=== PATIENT | male | born 1945 | race Caucasian/White ===

== ENCOUNTER 2018-12-15 17:41 | Inpatient (IN) ==
[2018-12-15] MEDS ORDERED: NORMAL SALINE 1,000 ML IV ONE ×2 (17:49→19:04)
[2018-12-15] MEDS ORDERED: ONDANSETRON HCL/PF 2 MG/ML VIAL IV ONE (17:49)
[2018-12-15] MEDS ORDERED: ONDANSETRON HCL/PF 2 MG/ML VIAL ONE (17:51)
[2018-12-15 18:03] LABS: Urine Bilirubin 1 mg/dl (NEGATIVE); Urine Blood Negative /ul (NEGATIVE); Urine Ketone 5 mg/dL (NEGATIVE); Urine Nitrite Negative (NEGATIVE); Urine Protein Negative (NEGATIVE); Urine Specific Gravity 1.025 SP.GR. (1.005-1.030); Urine pH 5.5 pH (5.0-7.0)
--- NOTE | 2018-12-15 18:04 | ERNOTE ---
<Curtis Coburn - Last Filed: 12/15/18 19:36> Abdominal HPI - Narrative Date of Service: 12/15/18 - General Chief Complaint: Abdominal Pain Time Seen by Provider: 12/15/18 17:46 Source: patient, EMS notes reviewed Exam Limitations: clinical condition - Immun/Allergies/Home Medications Immunizatons: IMMUNIZATION HX Immunizations Up to Date Yes History of Influenza Vaccine Yes Hx Pneumococcal Vaccination Yes Allergies/Adverse Reactions: Allergies sulfamethoxazole [From Bactrim] Allergy (Verified 12/15/18 18:23) trimethoprim [From Bactrim] Allergy (Verified 12/15/18 18:23) Home Medications: HOME MEDICATIONS Amlodipine Besylate 2.5 mg PO DAILY 12/15/18 [Last Taken Unknown] Aspirin [Aspirin EC] 325 mg PO DAILY 12/15/18 [Last Taken Unknown] Clopidogrel Bisulfate [Plavix] 75 mg PO DAILY 12/15/18 [Last Taken Unknown] Ezetimibe 10 mg PO DAILY 12/15/18 [Last Taken Unknown] Finasteride [Propecia] 1 mg PO DAILY 12/15/18 [Last Taken Unknown] Insulin NPH Hum/Reg Insulin Hm [Humulin 70-30] 20 unit SC QPM 12/15/18 [Last Taken Unknown] Insulin NPH Hum/Reg Insulin Hm [Humulin 70-30] 40 unit SC QAM 12/15/18 [Last Taken Unknown] Lisinopril [Zestril] 20 mg PO DAILY 12/15/18 [Last Taken Unknown] Metoprolol Tartrate 25 mg PO BID 12/15/18 [Last Taken Unknown] Saccharomyces Boulardii [Florastor] 250 mg PO BID 12/15/18 [Last Taken Unknown] Sertraline HCl [Zoloft] 50 mg PO DAILY 12/15/18 [Last Taken Unknown] Simvastatin [Zocor] 40 mg PO HS 12/15/18 [Last Taken Unknown] Tamsulosin HCl 0.4 mg PO DAILY 12/15/18 [Last Taken Unknown] - History of Present Illness Narrative: mily arrived to [facility] per ems with c/o lowbp anp vomiting, patient slow to speak but slightly confused Timing: constant Quality: moderate Activities at Onset: other - vomiting Modifying Factors - (Improves): Present: other - nothing Modifying Factors - (Worsens): Present: other Prior Abdominal Problems: Present: none Review of Systems - Review of Systems Constitutional: Present: See HPI EYE: Present: no symptoms reported ENT: Present: no symptoms reported Respiratory: Present: no symptoms reported Cardiology: Present: no symptoms reported Gastrointestinal/Abdominal: Present: See HPI, nausea, vomiting, eating less, drinking less Genitourinary: Present: no symptoms reported Musculoskeletal: Present: no symptoms reported Skin: Present: no symptoms reported Neurological: Present: no symptoms reported Endocrine: Present: no symptoms reported Hematologic/Lymphatic: Present: no symptoms reported Psych: Present: no symptoms reported All Other Systems: All systems neg except as marked Medical History (Updated 12/15/18 @ 18:20 by Armida Kilgore RN) Atherosclerotic heart disease BPH (benign prostatic hyperplasia) Coronary artery occlusion Diabetes type 2, controlled Elevated PSA Essential hypertension Hx of diabetic foot ulcer Hyperlipidemia Major depressive disorder Muscle wasting Onychogryphosis Restless leg syndrome CVA (cerebral vascular accident) Surgical History: Surgical History (Updated 12/15/18 @ 18:22 by Armida Kilgore RN) Surgical history unknown Family History: Family History (Updated 12/15/18 @ 18:21 by Armida Kilgore RN) Other Surgical history unknown Unknown family medical history Social History: (Last Updated 12/11/18 @ 14:14 by Audra Grubbs LPN) Social History: custodial: Yes Tobacco: Smoking Status: Smoker, status unknown Physical Exam - Physical Exam General Appearance: Present: lethargic Head Exam: Present: normal inspection, no evidence of injury Eye Exam: Normal inspection: bilateral, PERRL: bilateral, EOMI: bilateral Ears, Nose, Throat: Present: dry mucous membranes Neck: Present: normal inspection, nontender Respiratory: Present: no respiratory distress, normal breath sounds, no accessory muscle use, chest nontender, lungs clear Cardiovascular/Chest: Present: no murmur, tachycardia Peripheral Pulses: N=norm/S=strong/W=weak/B=bound/A=absent: Carotid (R): Normal, Carotid (L): Normal, Radial (R): Normal, Radial (L): Normal, Femoral (R): Normal, Femoral (L): Normal, Dorsalis-pedis (R): Normal, Dorsalis-pedis (L): Normal Gastrointestinal/Abdominal: Present: tenderness, abnormal bowel sounds, distended Back Exam: Present: normal inspection, normal range of motion, no vertebral tenderness Extremity Exam: Present: normal inspection, other - left sided paraplegias from previuos cva Neurological Exam: Present: alert, disoriented to person, disoriented to time, disoriented to place, disoriented to situation Skin Exam: Present: normal color, warm/dry Lymphatic Exam: Present: no adenopathy Progress - Date and Time Seen: Date and Time: 12/15/18 19:36 patient improved somewhat to obtain ct of abdomen if possble - Results and Orders Patient's Lab Results:: I have reviewed the patient's lab results. - Vital Signs Patient's Vital Signs:: I have reviewed the patient's vital signs. Vital Signs: Vital Signs 12/15/18 17:45 Temperature 35.8 C L Pulse Rate 115 H Respiratory Rate 19 Blood Pressure 104/59 O2 Sat by Pulse Oximetry 95 - EKG EKG #1 EKG: supraventricular tachycardia EKG read: Interp. by ut - sinus tachycardia - X-Ray X-Ray #1 X-Ray: abdomen Interpretation: Interp. by me - lateral decubitus reveals air fluid levels - Progress/Reassessment Chief Complaint: Abdominal Pain Progress:: Unchanged - Transfer of Care Physician Sign Out: Curtis Coburn Receiving Physician: Leonard Mendoza Expected Disposition: Admit Plan - Plan Plan: to be admitted Departure Clinical Impression: Colitis Sepsis Qualifiers: Sepsis type: sepsis due to unspecified organism Qualified Code(s): A41.9 - Sepsis, unspecified organism - Departure Disposition: Still a patient Condition: Serious <Leonard Mendoza - Last Filed: 12/16/18 02:03> Abdominal HPI - Immun/Allergies/Home Medications Immunizatons: IMMUNIZATION HX Immunizations Up to Date Yes History of Influenza Vaccine Yes Hx Pneumococcal Vaccination Yes Medical History (Updated 12/16/18 @ 00:58 by Leonard Mendoza DO) Atherosclerotic heart disease BPH (benign prostatic hyperplasia) Coronary artery occlusion Diabetes type 2, controlled Elevated PSA Essential hypertension Hx of diabetic foot ulcer Hyperlipidemia Major depressive disorder Muscle wasting Onychogryphosis Restless leg syndrome CVA (cerebral vascular accident) Surgical History: Surgical History (Updated 12/15/18 @ 18:22 by Armida Kilgore RN) Surgical history unknown Family History: Family History (Updated 12/15/18 @ 18:21 by Armida Kilgore RN) Other Surgical history unknown Unknown family medical history Social History: (Last Updated 12/11/18 @ 14:14 by Audra Grubbs LPN) Social History: custodial: Yes Tobacco: Smoking Status: Smoker, status unknown Physical Exam - Physical Exam General Appearance: Present: wd/wn, alert Head Exam: Present: normal inspection, no evidence of injury Respiratory: Present: no respiratory distress, no accessory muscle use Gastrointestinal/Abdominal: Present: tenderness - mild diffuse, abnormal bowel sounds - hyperactive Neurological Exam: Present: alert, disoriented to place - improving from presentation Skin Exam: Present: normal color, warm/dry Progress - Results and Orders Patient's Lab Results:: I have reviewed the patient's lab results. - Vital Signs Patient's Vital Signs:: I have reviewed the patient's vital signs. Vital Signs: Vital Signs 12/15/18 17:45 12/15/18 18:19 12/15/18 18:30 Temperature 35.8 C L Pulse Rate 115 H 105 H 113 H Respiratory Rate 19 28 H 22 H Blood Pressure 104/59 108/56 90/22 O2 Sat by Pulse Oximetry 95 96 97 12/15/18 19:00 12/15/18 19:30 12/15/18 20:00 Temperature Pulse Rate 112 H 115 H 112 H Respiratory Rate 21 H 22 H 24 H Blood Pressure 95/47 103/54 98/52 O2 Sat by Pulse Oximetry 96 97 98 12/15/18 20:30 12/15/18 21:00 12/15/18 21:30 Temperature 36.5 C Pulse Rate 113 H 113 H 113 H Respiratory Rate 28 H 28 H 25 H Blood Pressure 92/44 98/51 118/57 O2 Sat by Pulse Oximetry 95 98 96 12/15/18 22:00 12/15/18 22:30 12/15/18 23:00 Temperature Pulse Rate 113 H 115 H 114 H Respiratory Rate 24 H 25 H 22 H Blood Pressure 141/71 105/56 146/76 O2 Sat by Pulse Oximetry 95 98 95 12/15/18 23:30 Temperature Pulse Rate 115 H Respiratory Rate 22 H Blood Pressure 144/72 O2 Sat by Pulse Oximetry 94 - CT/Ultrasound CT/Ultrasound Narrative: CT abdomen pelvis with oral and IV contrast Moderate colonic wall thickening involving the splenic flexure and descending colon represents colitis versus inflammatory bowel. No pneumoperitoneum, abscess or bowel obstruction. Normal appendix - Progress/Reassessment Progress Note-Subjective: 12/16/18 00:[address] Blackburn she agreed with observation admission and recommended Flagyl.
[2018-12-15 18:14] LABS: Urine Appearance Clear (CLEAR); Urine Color Amber
[2018-12-15 18:15] LABS: Urine Bacteria TRACE; Urine RBC 0-5 /hpf (0-5); Urine WBC None Seen /hpf (0-5)
[2018-12-15 18:35] LABS: Hematocrit 48.8 % (42.0-52.0); Hemoglobin 16.5 gm/dL (13.5-18.0); Mean Cell Volume 86.2 fl (78-100); Mean Corpuscular Hemoglobin 29.2 pg (27-31); Mean Corpuscular Hgb Conc 33.8 g/dl (32-36); Mean Platelet Volume 9.5 fl (8-11.3); Platelet Count 293 K/mm3 (150-450); Red Blood Count 5.66 M/mm3 (4.7-6.0); Red Cell Distribution Width 13.7 % (11.5-14.0); White Blood Count 29.1 K/mm3 (4.0-10.5)
[2018-12-15 18:39] LABS: Total Cells Counted 100
[2018-12-15 18:40] LABS: Albumin * 3.5 gm/dl (3.4-5.0); Anion Gap 17.1 mmol/L (6.8-13.8); BUN/Creatinine Ratio 16.9 (9.0-21.6); Bilirubin, Total 0.9 mg/dL (0.0-1.1); CRP 1.4 mg/dL (0.0-0.9); Calcium * 9.9 mg/dL (7.9-10.9); Carbon Dioxide 26.1 mmol/L (24-32.6); Potassium 4.2 mmol/L (3.4-4.6)
[2018-12-15 18:51] LABS: Lymphocyte 12 % (20-51); Monocyte 2 % (0-9); Neutrophil 86 % (42-75)
[2018-12-15 18:52] LABS: Ovalocytes 1+
[2018-12-15 18:53] LABS: Platelet Estimate Normal (NORMAL)
[2018-12-15] MEDS ORDERED: PROCHLORPERAZINE EDISYLATE 5 MG/ML VIAL IV ONE (18:56)
[2018-12-15] MEDS ORDERED: DIATRIZOATE MEGLUMINE, SODIUM 30 ML BTL PO ONE ×2 (19:30→19:32)
[2018-12-15] MEDS ORDERED: PIPERACILLIN SODIUM/TAZOBACTAM 3.375 GM in DEXTROSE 5 % IN WATER 100 ML IV ONE ×2 (20:28)
[2018-12-15] MEDS: NORMAL SALINE 1,000 ML IV PRN (20:30)
[2018-12-16] MEDS: metroNIDAZOLE/SODIUM CHLORIDE 500 MG/100 ML BAG IV SCH ×3 (02:36→16:29)
[2018-12-16] MEDS: NORMAL SALINE 1,000 ML IV PRN ×2 (06:06→16:30)
[2018-12-16] MEDS ORDERED: ACETAMINOPHEN 325 MG TABLET PO PRN (10:23)
[2018-12-16] MEDS ORDERED: ONDANSETRON HCL/PF 2 MG/ML VIAL IV PRN (10:24)
[2018-12-16] MEDS ORDERED: FINASTERIDE 1 MG PO SCH (10:30)
[2018-12-16] MEDS: ASPIRIN 325 MG TABLET.DR PO SCH (11:07)
[2018-12-16] MEDS: CIPROFLOXACIN IN 5 % DEXTROSE 400 MG/200 ML BAG IV SCH (11:07)
[2018-12-16] MEDS: amLODIPine BESYLATE 5 MG TABLET PO SCH (11:08)
[2018-12-16] MEDS: METOPROLOL TARTRATE 50 MG TABLET PO SCH ×2 (11:08→20:22)
[2018-12-16] MEDS: SERTRALINE HCL 50 MG TABLET PO SCH (11:09)
[2018-12-16] MEDS: EZETIMIBE 10 MG TABLET PO SCH (11:09)
[2018-12-16] MEDS: CLOPIDOGREL BISULFATE 75 MG TABLET PO SCH (11:09)
[2018-12-16] MEDS: LISINOPRIL 20 MG TABLET PO SCH (11:09)
[2018-12-16] MEDS: SACCHAROMYCES BOULARDII 250 MG CAPSULE PO SCH ×2 (11:09→20:21)
--- NOTE | 2018-12-16 11:11 | HP ---
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 intermediate staff had patient brought to the hospital when he complained of increasing pain and became hypotensive patient was also found to have an elevated heart rate. During rounds this morning patient was found to be unaccompanied and was determined to be a poor historian due to his inability to give an accurate account of his symptoms, but he was able to communicate that he started having abdominal pain around the time that he was brought to the ER. Patient also became nauseous and said that he felt sick during bedside evaluation, antiemetics were administered and patient was provided with a vomit bag. Medical History (Updated 12/16/18 @ 00:58 by Leonard Mendoza DO) Atherosclerotic heart disease BPH (benign prostatic hyperplasia) Coronary artery occlusion Diabetes type 2, controlled Elevated PSA Essential hypertension Hx of diabetic foot ulcer Hyperlipidemia Major depressive disorder Muscle wasting Onychogryphosis Restless leg syndrome CVA (cerebral vascular accident) Surgical History: Surgical History (Updated 12/15/18 @ 18:22 by Armida Kilgore RN) Surgical history unknown Family History: Family History (Updated 12/15/18 @ 18:21 by Armida Kilgore RN) Other Surgical history unknown Unknown family medical history Social History: (Last Updated 12/11/18 @ 14:14 by Audra Grubbs LPN) Social History: halfway: Yes Tobacco: Smoking Status: Smoker, status unknown Peds Patient Hx - Developmental: No Pertinent Hx Peds Patient Hx - Medical: No Pertinent Hx Peds Patient Hx - Cardiac/Respiratory: No Pertinent Hx Peds Patient Hx - Surgical: No Surgical History Patient History - Cancer: No Hx of Cancer Review Of Systems (GEN) - Review of Systems Generalized/Overall Review: Present: No Symptoms Reported EENTM: Present: No Symptoms Reported Respiratory: Present: No Symptoms Reported Cardiac: Present: No Symptoms Reported Abdominal: Present: Nausea, Vomiting, Abdominal Pain Genitourinary: Present: No Symptoms Reported Musculoskeletal: Present: No Symptoms Reported Neurological: Present: No Symptoms Reported Skin: Present: No Symptoms Reported Endocrine: Present: No Symptoms Reported Immunizations: IMMUNIZATION HX Immunizations Up to Date Yes History of Influenza Vaccine Yes Hx Pneumococcal Vaccination Yes Allergies/Adverse Reactions: Allergies Allergy/AdvReac Type Severity Reaction Status Date / Time sulfamethoxazole Allergy Verified 12/15/18 18:23 [From Bactrim] trimethoprim [From Bactrim] Allergy Verified 12/15/18 18:23 Home Medications: HOME MEDICATIONS Amlodipine Besylate 2.5 mg PO DAILY 12/15/18 [Last Taken 12/14/18] Aspirin [Aspirin EC] 325 mg PO DAILY 12/15/18 [Last Taken 12/14/18] Clopidogrel Bisulfate [Plavix] 75 mg PO DAILY 12/15/18 [Last Taken 12/14/18] Ezetimibe 10 mg PO DAILY 12/15/18 [Last Taken 12/14/18] Finasteride [Propecia] 1 mg PO DAILY 12/15/18 [Last Taken 12/14/18] Insulin NPH Hum/Reg Insulin Hm [Humulin 70-30] 20 unit SC QPM 12/15/18 [Last Taken 12/14/18] Insulin NPH Hum/Reg Insulin Hm [Humulin 70-30] 40 unit SC QAM 12/15/18 [Last Taken 12/14/18] Lisinopril [Zestril] 20 mg PO DAILY 12/15/18 [Last Taken 12/14/18] Metoprolol Tartrate 25 mg PO BID 12/15/18 [Last Taken 12/14/18] Saccharomyces Boulardii [Florastor] 250 mg PO BID 12/15/18 [Last Taken 12/14/18] Sertraline HCl [Zoloft] 50 mg PO DAILY 12/15/18 [Last Taken 12/14/18] Simvastatin [Zocor] 40 mg PO HS 12/15/18 [Last Taken 12/14/18] Tamsulosin HCl 0.4 mg PO DAILY 12/15/18 [Last Taken 12/14/18] Exam - Exam Vital Signs: Vital Signs - Last Taken Temp 37.2 C 12/16/18 08:06 Pulse 129 H 12/16/18 08:06 Resp 14 12/16/18 08:06 BP 124/68 12/16/18 08:06 Pulse Ox 95 12/16/18 08:06 Constitutional: Present: Alert, Cooperative, Well developed, Well nourished, No distress, Elderly ENT Exam: Present: normal ENT inspection, hearing grossly normal, pharynx normal, TMs normal Eye Exam: bilateral eye: PERRL, EOMI, other - Patient is keeps his eyes shut so far evaluation was difficult to obtain Neck: Present: non-tender, full range of motion, supple, normal inspection, trachea midline Back Exam: Present: normal inspection, no CVA tenderness, no vertebral tenderness Breasts: Present: Exam deferred Respiratory: Present: chest non-tender, lungs clear, normal breath sounds, no respiratory distress, no accessory muscle use Cardiovascular/Chest: Present: normal peripheral pulses, no chest tenderness, no edema, no gallop, no JVD, no murmur, no rub Peripheral Pulses: carotid (R): 3+, carotid (L): 3+, femoral (R): 3+, femoral (L): 3+, dorsalis-pedis (R): 3+, dorsalis-pedis (L): 3+ Abdomen: Present: soft, no masses, obese, tender - Right upper quadrant, epigastric, left upper and lower quadrant tenderness on palpation, guarding, rebound tenderness, distended, hypoactive /Rectal: Present: Exam deferred Extremity: Present: non-tender, normal inspection, no pedal edema, no calf tenderness, normal capillary refill Skin Exam: Present: normal color, warm/dry, no cyanosis Lymphatic: Present: no adenopathy Neurologic: Present: alert, abnormal composition weatherboard applier II-XII, motor weakness, disoriented x 3, other - Left-sided hemiparesis Appearance: Present: appropriate appearance, neat, impaired insight, other - Patient speech is incoherent and does not make much sense Diagnostic Studies: Abnormal Lab Results 12/15/18 12/15/18 12/15/18 Range/Units 18:10 18:10 18:10 WBC 29.1 H (4.0-10.5) K/mm3 Neutrophils % (Manual) 86 H (42-75) % Lymphocytes % (Manual) 12 L (20-51) % Neutrophils # (Manual) 25.0 H (1.3-6.0) K/mm3 Anion Gap 17.1 H (6.8-13.8) mmol/L BUN 31 H D (6-23) mg/dL Creatinine 1.83 H D (0.4-1.4) mg/dL Est GFR (Non-Af Amer) 39 L D (60-130) mL/min Lactic Acid, Venous 4.0 H* (0.4-2.0) mmol/L AST 66 H (0-48) U/L C-Reactive Prot, Quant 1.4 H (0.0-0.9) mg/dL Lipase 54 L (73-393) U/L Urine Bilirubin (NEGATIVE) mg/dl Urine Urobilinogen (NORMAL) EU/dl 12/15/18 12/15/18 Range/Units 18:10 21:30 WBC (4.0-10.5) K/mm3 Neutrophils % (Manual) (42-75) % Lymphocytes % (Manual) (20-51) % Neutrophils # (Manual) (1.3-6.0) K/mm3 Anion Gap (6.8-13.8) mmol/L BUN (6-23) mg/dL Creatinine (0.4-1.4) mg/dL Est GFR (Non-Af Amer) (60-130) mL/min Lactic Acid, Venous 3.2 H* (0.4-2.0) mmol/L AST (0-48) U/L C-Reactive Prot, Quant (0.0-0.9) mg/dL Lipase (73-393) U/L Urine Bilirubin 1 H (NEGATIVE) mg/dl Urine Urobilinogen 2.0 H (NORMAL) EU/dl Microbiology 12/15/18 17:55 Urine Culture - Preliminary Urine,Catheterized No Growth Laboratory Results WBC 29.1 K/mm3 (4.0-10.5) H 12/15/18 18:10 RBC 5.66 M/mm3 (4.7-6.0) 12/15/18 18:10 Hgb 16.5 gm/dL (13.5-18.0) 12/15/18 18:10 Hct 48.8 % (42.0-52.0) 12/15/18 18:10 MCV 86.2 fl (78-100) 12/15/18 18:10 MCH 29.2 pg (27-31) 12/15/18 18:10 MCHC 33.8 g/dl (32-36) 12/15/18 18:10 RDW 13.7 % (11.5-14.0) 12/15/18 18:10 Plt Count 293 K/mm3 (150-450) 12/15/18 18:10 MPV 9.5 fl (8-11.3) 12/15/18 18:10 86 % (42-75) H 12/15/18 18:10 12 % (20-51) L 12/15/18 18:10 2 % (0-9) 12/15/18 18:10 25.0 K/mm3 (1.3-6.0) H 12/15/18 18:10 3.5 k/mm3 (1.5-3.5) 12/15/18 18:10 0.6 k/mm3 (0.0-1.0) 12/15/18 18:10 Normal (NORMAL) 12/15/18 18:10 1+ 12/15/18 18:10 2+ 12/15/18 18:10 Sodium 140 mmol/L (132-142) 12/15/18 18:10 140 mmol/L (130-142) 12/15/18 18:10 Potassium 4.2 mmol/L (3.4-4.6) 12/15/18 18:10 Chloride 101 mmol/L (97-106) 12/15/18 18:10 Carbon Dioxide 26.1 mmol/L (24-32.6) 12/15/18 18:10 17.1 mmol/L (6.8-13.8) H 12/15/18 18:10 BUN 31 mg/dL (6-23) H D 12/15/18 18:10 1.83 mg/dL (0.4-1.4) H D 12/15/18 18:10 Est GFR (Non-Af Amer) 39 mL/min (60-130) L D 12/15/18 18:10 16.9 (9.0-21.6) 12/15/18 18:10 110 mg/dL (70-110) 12/15/18 18:10 3.2 mmol/L (0.4-2.0) H* 12/15/18 21:30 Calcium 9.9 mg/dL (7.9-10.9) 12/15/18 18:10 Calcium Adj for Albumin 10.0 mg/dL (8.4-10.2) 12/15/18 18:10 0.9 mg/dL (0.0-1.1) 12/15/18 18:10 AST 66 U/L (0-48) H 12/15/18 18:10 ALT 35 U/L (19-67) 12/15/18 18:10 111 U/L (50-170) 12/15/18 18:10 Less than 0.017 ng/mL (0.00-0.10) 12/15/18 18:10 C-Reactive Prot, Quant 1.4 mg/dL (0.0-0.9) H 12/15/18 18:10 7.0 gm/dL (6.2-8.2) 12/15/18 18:10 3.5 gm/dl (3.4-5.0) 12/15/18 18:10 Amylase 33 U/L (25-115) 12/15/18 18:10 54 U/L (73-393) L 12/15/18 18:10 0.11 ng/mL (0.05-0.50) 12/15/18 18:10 Lizzy 12/15/18 18:10 Clear (CLEAR) 12/15/18 18:10 5.5 pH (5.0-7.0) 12/15/18 18:10 Ur Specific [place] 1.025 SP.GR. (1.005-1.030) 12/15/18 18:10 Negative mg/dL (NEGATIVE) 12/15/18 18:10 Negative mg/dL (NEGATIVE) 12/15/18 18:10 5 mg/dL (NEGATIVE) 12/15/18 18:10 Negative /ul (NEGATIVE) 12/15/18 18:10 Negative (NEGATIVE) 12/15/18 18:10 1 mg/dl (NEGATIVE) H 12/15/18 18:10 Negative (NEGATIVE) 12/15/18 18:10 2.0 EU/dl (NORMAL) H 12/15/18 18:10 Ur Leukocyte Esterase Negative /ul (NEGATIVE) 12/15/18 18:10 0-5 /hpf (0-5) 12/15/18 18:10 None seen /hpf (0-5) 12/15/18 18:10 Ur Epithelial Cells 0-5 /hpf (0-5) 12/15/18 18:10 Trace (NONE) 12/15/18 18:10 Culture to follow 12/15/18 18:10 Assessment/Plan - Narrative Narrative: Patient was evaluated and medical chart was reviewed and decision to admit to inpatient MedSur unit with a diagnosis of acute colitis, moderate dehydration, and sinus tachycardia was made. Labs on admission demonstrate a leukocytosis with left shift, acute kidney injury, elevated inflammatory markers, and elevated lactic acid. Given the presentation of the patient's symptoms and these lab findings inflammatory bowel disease, ischemic colitis, and bowel infections or hilar differential. Abdominal CT ordered in the ER demonstrated colonic wall thickening specifically in the splenic flexure, descending colon, and sigmoid colon making colitis very likely. Given these findings, will treat patient with IV antibiotics, IV hydration and place him on n.p.o. given the fact that he is still experiencing nausea and occasional vomiting. He will be given antiemetics to control his nausea and vomiting. Patient was found to have sinus tachycardia with a heart rate around 120, but after reviewing his at home medication list it was found that he routinely takes metoprolol for rate control. Therefore the medication will be administered stat to control his heart rate and patient will be placed on telemetry for close monitoring. Currently he denies any chest pain or chest discomfort, and cardiac troponins are negative. We will continue to monitor him closely - Assessment/Plan (1) Abdominal pain Problem: Acute (2) Acute colitis Problem: Acute (3) Nausea & vomiting Problem: Acute (4) Tachycardia Problem: Acute (5) Diabetes 1.5, managed as type 2 Problem: Acute (6) Acute kidney injury superimposed on CKD Problem: Acute (7) Moderate dehydration Problem: Acute (8) Leukocytosis Problem: Acute (9) Acute infection Problem: Acute
[2018-12-16] MEDS: FINASTERIDE 5 MG TABLET PO SCH (11:14)
[2018-12-16] MEDS: FAMOTIDINE 20 MG in DEXTROSE 5 % IN WATER 100 ML IV SCH ×4 (12:17→22:16)
[2018-12-16] MEDS: HUM INSULIN NPH/REG INSULIN HM 100 UNIT/ML VIAL SC SCH (16:36)
[2018-12-16] MEDS: TAMSULOSIN HCL 0.4 MG CAP.SR.24H PO SCH (18:30)
[2018-12-16] MEDS: SIMVASTATIN 40 MG TABLET PO SCH (20:22)
[2018-12-16] MEDS: INSULIN REGULAR, HUMAN 100 UNITS/ML VIAL SC SCH (21:13)
[2018-12-17] MEDS: metroNIDAZOLE/SODIUM CHLORIDE 500 MG/100 ML BAG IV SCH ×3 (00:47→17:36)
[2018-12-17] MEDS: NORMAL SALINE 1,000 ML IV PRN ×3 (02:37→21:07)
[2018-12-17 06:39] LABS: Albumin * 2.3 gm/dl (3.4-5.0); Anion Gap 11.1 mmol/L (6.8-13.8); BUN/Creatinine Ratio 19.8 (9.0-21.6); Bilirubin, Total 0.5 mg/dL (0.0-1.1); Ca. Corrected For Albumin 9.1 mg/dL (8.4-10.2); Calcium * 8.1 mg/dL (7.9-10.9); Carbon Dioxide 25.9 mmol/L (24-32.6); Total Protein 5.1 gm/dL (6.2-8.2)
[2018-12-17 06:45] LABS: Hematocrit 38.6 % (42.0-52.0); Hemoglobin 12.9 gm/dL (13.5-18.0); Mean Cell Volume 86.7 fl (78-100); Mean Corpuscular Hgb Conc 33.4 g/dl (32-36); Mean Platelet Volume 9.7 fl (8-11.3); Platelet Count 215 K/mm3 (150-450); Red Blood Count 4.45 M/mm3 (4.7-6.0); Red Cell Distribution Width 14.3 % (11.5-14.0); White Blood Count 13.2 K/mm3 (4.0-10.5)
[2018-12-17 06:47] LABS: Total Cells Counted 100
[2018-12-17 07:30] LABS: Atypical (Reactive) Lymph 1 % (0-2); Band 2 % (0-2.0); Lymphocyte 11 % (20-51); Monocyte 11 % (0-9); Neutrophil 75 % (42-75); Neutrophil # 9.9 K/mm3 (1.3-6.0)
[2018-12-17 07:34] LABS: Platelet Estimate Normal (NORMAL); RBC Morphology Normal (NORMAL)
[2018-12-17] MEDS: INSULIN REGULAR, HUMAN 100 UNITS/ML VIAL SC SCH ×4 (07:34→20:12)
[2018-12-17] MEDS: ASPIRIN 325 MG TABLET.DR PO SCH (09:03)
[2018-12-17] MEDS: SACCHAROMYCES BOULARDII 250 MG CAPSULE PO SCH ×2 (09:04→20:06)
[2018-12-17] MEDS: HUM INSULIN NPH/REG INSULIN HM 100 UNIT/ML VIAL SC SCH ×2 (09:04→17:24)
[2018-12-17] MEDS: amLODIPine BESYLATE 5 MG TABLET PO SCH (09:05)
[2018-12-17] MEDS: CLOPIDOGREL BISULFATE 75 MG TABLET PO SCH (09:07)
[2018-12-17] MEDS: FINASTERIDE 5 MG TABLET PO SCH (09:07)
[2018-12-17] MEDS: LISINOPRIL 20 MG TABLET PO SCH (09:07)
[2018-12-17] MEDS: SERTRALINE HCL 50 MG TABLET PO SCH (09:08)
[2018-12-17] MEDS: EZETIMIBE 10 MG TABLET PO SCH (09:08)
[2018-12-17] MEDS: METOPROLOL TARTRATE 50 MG TABLET PO SCH (09:12)
--- NOTE | 2018-12-17 10:00 | PN ---
Subjective - Date and Time Seen Date: 12/17/18 Time: 09:44 Subjective Narrative: I feel better, I have less abdominal pain Objective Objective Narrative: 73-year-old male admitted for acute colitis, dehydration, and acute kidney injury was evaluated at bedside and was found to be afebrile and in no acute distress. Patient has maintained normal vitals and his heart rate has been controlled since arriving to the floor. During rounds this morning he reported improvement in his nausea and denied any vomiting during the night, patient is tolerating oral intake without any issues and his abdominal pain has also improved. Microbiology lab results this morning revealed growth of MRSA in his nares therefore we will add Bactroban to his treatment. We will continue to manage patient with IV hydration and IV antibiotics to treat his colitis and reevaluate him for possible discharge tomorrow morning. In the meantime we will progress his diet. - Review of Systems Generalized/Overall Review: Reports: No Symptoms Reported EENTM: Reports: No Symptoms Reported Respiratory: Reports: No Symptoms Reported Cardiac: Reports: No Symptoms Reported Abdominal: Reports: Nausea, Abdominal Pain Genitourinary Symptoms: Reports: No Symptoms Reported Musculoskeletal Complaints: Reports: No Symptoms Reported Neurological: Reports: No Symptoms Reported Skin: Reports: No Symptoms Reported Endocrine: Reports: No Symptoms Reported - Vitals Vitals: Last Vital Signs Temp 36.6 C 12/17/18 03:00 Pulse 82 12/17/18 09:12 Resp 18 12/17/18 03:00 BP 145/64 12/17/18 09:12 Pulse Ox 94 12/17/18 03:00 - Abnormal Lab Findings Abnormal Lab Findings: Abnormal Lab Results 12/17/18 12/17/18 Range/Units 06:00 06:00 WBC 13.2 H D (4.0-10.5) K/mm3 RBC 4.45 L (4.7-6.0) M/mm3 Hgb 12.9 L (13.5-18.0) gm/dL Hct 38.6 L (42.0-52.0) % RDW 14.3 H (11.5-14.0) % Lymphocytes % (Manual) 11 L (20-51) % Monocytes % (Manual) 11 H (0-9) % Neutrophils # (Manual) 9.9 H (1.3-6.0) K/mm3 Monocytes # (Manual) 1.5 H (0.0-1.0) k/mm3 Chloride 108 H (97-106) mmol/L Random Glucose 130 H (70-110) mg/dL Total Protein 5.1 L (6.2-8.2) gm/dL Albumin 2.3 L (3.4-5.0) gm/dl - Exam Constitutional: Present: Alert, Cooperative, Well developed, Well nourished, No distress ENT Exam: Present: normal ENT inspection Neck: Present: non-tender, full range of motion, supple, normal inspection, trachea midline Breasts: Present: Exam deferred Respiratory: Present: chest non-tender, lungs clear, normal breath sounds, no respiratory distress, no accessory muscle use Cardiovascular/Chest: Present: normal peripheral pulses, regular rate, rhythm, no chest tenderness, no edema, no gallop, no JVD, no murmur, no rub Abdomen: Present: Normal bowel sounds, soft, nondistended, no rebound tenderness, no hepatospenomegaly, no masses, obese /Rectal: Present: Exam deferred Extremity: Present: normal range of motion, non-tender, normal inspection, no pedal edema, no calf tenderness Skin Exam: Present: normal color, warm/dry, no cyanosis Lymphatic: Present: no adenopathy Neurologic: Present: other Appearance: Present: appropriate insight - Left hemiparesis, neat, no memory impairment Eye contact: Present: cooperative, normal speech, avoids eye contact Thoughts: Present: normal thought pattern Assessment/Plan Plan Narrative: We will continue to treat patient with IV hydration and IV antibiotics, bacitracin has been added to his treatment for MRSA in the nares. Diet has been progressed we will see how he tolerates and reevaluate him in the morning for possible discharge. - Problems/Diagnosis (1) Abdominal pain Problem: Acute (2) Acute colitis Problem: Acute (3) Nausea & vomiting Problem: Acute (4) Tachycardia Problem: Acute (5) Diabetes 1.5, managed as type 2 Problem: Acute (6) Acute kidney injury superimposed on CKD Problem: Acute (7) Moderate dehydration Problem: Acute (8) Leukocytosis Problem: Acute (9) Acute infection Problem: Acute (10) MRSA (methicillin resistant staph aureus) culture positive Problem: Acute
[2018-12-17] MEDS: FAMOTIDINE 20 MG TABLET PO SCH ×2 (10:41→20:07)
[2018-12-17] MEDS: CIPROFLOXACIN IN 5 % DEXTROSE 400 MG/200 ML BAG IV SCH (10:42)
[2018-12-17] MEDS: MUPIROCIN 22 APPL TUBE TP SCH ×2 (10:50→20:06)
[2018-12-17] MEDS: TAMSULOSIN HCL 0.4 MG CAP.SR.24H PO SCH (18:38)
[2018-12-17] MEDS: SIMVASTATIN 40 MG TABLET PO SCH (20:06)
[2018-12-17] MEDS: METOPROLOL TARTRATE 25 MG TABLET PO SCH (20:06)
[2018-12-18] MEDS: metroNIDAZOLE/SODIUM CHLORIDE 500 MG/100 ML BAG IV SCH ×2 (01:16→09:45)
[2018-12-18 05:58] LABS: Hemoglobin 12.1 gm/dL (13.5-18.0); Mean Cell Volume 86.5 fl (78-100); Mean Corpuscular Hemoglobin 29.1 pg (27-31); Mean Corpuscular Hgb Conc 33.6 g/dl (32-36); Mean Platelet Volume 9.7 fl (8-11.3); Neutrophil # 7.5 K/mm3 (1.3-6.0); Neutrophil % 70.3 % (42-75.0); Platelet Count 210 K/mm3 (150-450); Red Blood Count 4.16 M/mm3 (4.7-6.0); Red Cell Distribution Width 14.1 % (11.5-14.0); White Blood Count 10.7 K/mm3 (4.0-10.5)
[2018-12-18] MEDS: NORMAL SALINE 1,000 ML IV PRN (06:03)
[2018-12-18 06:18] LABS: Albumin * 2.1 gm/dl (3.4-5.0); Anion Gap 10.8 mmol/L (6.8-13.8); BUN/Creatinine Ratio 15.2 (9.0-21.6); Bilirubin, Total 0.6 mg/dL (0.0-1.1); Calcium * 7.8 mg/dL (7.9-10.9); Carbon Dioxide 24.6 mmol/L (24-32.6); Potassium 3.4 mmol/L (3.4-4.6); Total Protein 4.8 gm/dL (6.2-8.2)
[2018-12-18] MEDS: INSULIN REGULAR, HUMAN 100 UNITS/ML VIAL SC SCH (07:37)
--- NOTE | 2018-12-18 07:43 | DS ---
(1) Abdominal pain Problem: Resolved (2) Acute colitis Problem: Resolved (3) Nausea & vomiting Problem: Resolved (4) Tachycardia Problem: Resolved (5) Diabetes 1.5, managed as type 2 Problem: Chronic (6) Acute kidney injury superimposed on CKD Problem: Resolved (7) Moderate dehydration Problem: Resolved (8) Leukocytosis Problem: Resolved (9) Acute infection Problem: Resolved (10) MRSA (methicillin resistant staph aureus) culture positive Problem: Acute Description of Stay: 73-year-old male custodial resident admitted for acute colitis and moderate dehydration was evaluated at bedside was found to be afebrile and in no acute distress. Patient has responded favorably to the inpatient management. His leukocytosis has resolved as well as his acute kidney injury per this morning's labs. He reports resolution of his abdominal pain and nausea and vomiting and denies any new symptoms. Patient's tachycardia has also resolved he maintains stable vitals. Patient was treated with IV antibiotics as well as IV hydration as well as medications to treat his symptoms. Given these findings decision to discharge patient back to [facility] where he will continue with occupational as well as physical therapy was made. Patient is to be seen by his PCP within the next week or 2. Procedures Performed: none Results and Findings: Pending Mircobiology Results 12/15/18 19:25 Blood Blood Culture - Preliminary NO GROWTH AFTER 48 HOURS 12/15/18 18:00 Blood Blood Culture - Preliminary NO GROWTH AFTER 48 HOURS Lab Pending Results 12/15/18 18:10: WBC 29.1 H, RBC 5.66, Hgb 16.5, Hct 48.8, MCV 86.2, MCH 29.2, MCHC 33.8, RDW 13.7, Plt Count 293, MPV 9.5, Neutrophils % (Manual) 86 H, Lymphocytes % (Manual) 12 L, Monocytes % (Manual) 2, Neutrophils # (Manual) 25.0 H, Lymphocytes # (Manual) 3.5, Monocytes # (Manual) 0.6, Platelet Estimate Normal, Ovalocytes 1+, [place] Cells 2+ 12/15/18 18:10: Sodium 140, Plasma Sodium 140, Potassium 4.2, Chloride 101, Carbon Dioxide 26.1, Anion Gap 17.1 H, BUN 31 H D, Creatinine 1.83 H D, Est GFR (Non-Af Amer) 39 L D, BUN/Creatinine Ratio 16.9, Random Glucose 110, Calcium 9.9, Calcium Adj for Albumin 10.0, Total Bilirubin 0.9, AST 66 H, ALT 35, Alkaline Phosphatase 111, C-Reactive Prot, Quant 1.4 H, Total Protein 7.0, Albumin 3.5, Amylase 33, Lipase 54 L 12/15/18 18:10: Procalcitonin 0.11 12/15/18 18:10: Lactic Acid, Venous 4.0 H* 12/15/18 18:10: Urine Color Lizzy, Urine Appearance Clear, Urine pH 5.5, Ur Specific [place] 1.025, Urine Protein Negative, Urine Glucose (UA) Negative, Urine Ketones 5, Urine Blood Negative, Urine Nitrate Negative, Urine Bilirubin 1 H, Urine Ictotest Negative, Urine Urobilinogen 2.0 H, Ur Leukocyte Esterase Negative, Urine RBC 0-5, Urine WBC None seen, Ur Epithelial Cells 0-5, Urine Bacteria Trace, Urine Culture Comments Culture to follow 12/15/18 18:10: Troponin I Less than 0.017 12/15/18 21:30: Lactic Acid, Venous 3.2 H* 12/16/18 09:45: Stl C.difficile Tox A&B Negative 12/17/18 06:00: WBC 13.2 H D, RBC 4.45 L, Hgb 12.9 L, Hct 38.6 L, MCV 86.7, MCH 29.0, MCHC 33.4, RDW 14.3 H, Plt Count 215, MPV 9.7, Neutrophils % (Manual) 75, Band Neuts % (Manual) 2, Lymphocytes % (Manual) 11 L, Monocytes % (Manual) 11 H, Neutrophils # (Manual) 9.9 H, Lymphocytes # (Manual) 1.5, Monocytes # (Manual) 1.5 H, Atypic/Reactive Lymphs 1, Platelet Estimate Normal, RBC Morphology Normal 12/17/18 06:00: Sodium 141, Plasma Sodium 141, Potassium 4.0, Chloride 108 H, Carbon Dioxide 25.9, Anion Gap 11.1, BUN 17, Creatinine 0.86, Est GFR (Non-Af Amer) 92 D, BUN/Creatinine Ratio 19.8, Random Glucose 130 H, Calcium 8.1, Calcium Adj for Albumin 9.1, Total Bilirubin 0.5, AST 27, ALT 23, Alkaline Phosphatase 74, Total Protein 5.1 L, Albumin 2.3 L 12/18/18 06:00: WBC 10.7 H, RBC 4.16 L, Hgb 12.1 L, Hct 36.0 L, MCV 86.5, MCH 29.1, MCHC 33.6, RDW 14.1 H, Plt Count 210, MPV 9.7, Immature Gran % (Auto) 0.30, Immature Gran # (Auto) 0.03, Neutrophils % 70.3, Lymphocytes % 19.5 L, Monocytes % 7.6, Eosinophils % 1.8, Basophils % 0.5, Nucleated RBC % 0.0, Neutrophils # 7.5 H, Lymphocytes # 2.08, Monocytes # 0.8, Eosinophils # 0.2, Abs olute Basophils 0.1 12/18/18 06:00: Sodium 140, Plasma Sodium 140, Potassium 3.4, Chloride 108 H, Carbon Dioxide 24.6, Anion Gap 10.8, BUN 10, Creatinine 0.66, Est GFR (Non-Af Amer) 125 D, BUN/Creatinine Ratio 15.2, Random Glucose 97, Calcium 7.8 L, Calcium Adj for Albumin 9.0, Total Bilirubin 0.6, AST 24, ALT 17 L, Alkaline Phosphatase 69, Total Protein 4.8 L, Albumin 2.1 L Discharge Location: [facility] Disposition: SNF Condition: Good Face to Face Encounter completed per [facility] Guidelines: No Level of Care: SNF Discharge Activity: Activity as tolerated Discharge Diet: General/regular food Fdc Therapy: Physicial Therapy, Occupation Therapy Prescriptions (Any new or edited meds): Mupirocin [Bactroban] 1 appl TOPICAL BID #10 tube metroNIDAZOLE [Flagyl] 500 mg PO Q8H 5 Days #15 tab Complete Home Medications List: Complete Home Medication List: Amlodipine Besylate 2.5 mg PO DAILY 12/15/18 Aspirin [Aspirin EC] 325 mg PO DAILY 12/15/18 Clopidogrel Bisulfate [Plavix] 75 mg PO DAILY 12/15/18 Ezetimibe 10 mg PO DAILY 12/15/18 Finasteride [Propecia] 5 mg PO DAILY 12/15/18 Insulin NPH Hum/Reg Insulin Hm [Humulin 70-30] 20 unit SC QPM 12/15/18 Insulin NPH Hum/Reg Insulin Hm [Humulin 70-30] 40 unit SC QAM 12/15/18 Lisinopril [Zestril] 20 mg PO DAILY 12/15/18 Metoprolol Tartrate 25 mg PO BID 12/15/18 Saccharomyces Boulardii [Florastor] 250 mg PO BID 12/15/18 Sertraline HCl [Zoloft] 50 mg PO DAILY 12/15/18 Simvastatin [Zocor] 40 mg PO HS 12/15/18 Tamsulosin HCl 0.4 mg PO DAILY 12/15/18 Mupirocin [Bactroban] 1 appl TOPICAL BID #10 tube 12/18/18 metroNIDAZOLE [Flagyl] 500 mg PO Q8H 5 Days #15 tab 12/18/18
[2018-12-18] MEDS: MUPIROCIN 22 APPL TUBE TP SCH (09:44)
[2018-12-18] MEDS: SACCHAROMYCES BOULARDII 250 MG CAPSULE PO SCH (09:44)
[2018-12-18] MEDS: METOPROLOL TARTRATE 25 MG TABLET PO SCH (09:44)
[2018-12-18] MEDS: amLODIPine BESYLATE 5 MG TABLET PO SCH (09:44)
[2018-12-18] MEDS: ASPIRIN 325 MG TABLET.DR PO SCH (09:44)
[2018-12-18] MEDS: LISINOPRIL 20 MG TABLET PO SCH (09:45)
[2018-12-18] MEDS: CLOPIDOGREL BISULFATE 75 MG TABLET PO SCH (09:45)
[2018-12-18] MEDS: FAMOTIDINE 20 MG TABLET PO SCH (09:45)
[2018-12-18] MEDS: FINASTERIDE 5 MG TABLET PO SCH (09:45)
[2018-12-18] MEDS: EZETIMIBE 10 MG TABLET PO SCH (09:45)
[2018-12-18] MEDS: SERTRALINE HCL 50 MG TABLET PO SCH (09:45)
[2018-12-18] MEDS: HUM INSULIN NPH/REG INSULIN HM 100 UNIT/ML VIAL SC SCH (11:08)
[2018-12-18] MEDS: CIPROFLOXACIN IN 5 % DEXTROSE 400 MG/200 ML BAG IV SCH (11:09)
[2018-12-18 12:01] VITALS: BP 145/60
== END 2018-12-18 12:05 | DRG 392 ==
LOC: MS 17:41 → ER 17:41 → OBSVTOIN 12-16 00:54 → MS 12-16 01:30
PROVIDERS: ADMIT Family Medicine; ATTEND Family Medicine
DX: I12.9 Hypertensive chronic kidney disease with stage 1 through stage 4 chronic kidney disease, or unspecified chronic kidney disease; I69.354 Hemiplegia and hemiparesis following cerebral infarction affecting left non-dominant side; Z22.322 Carrier or suspected carrier of Methicillin resistant Staphylococcus aureus; I13.10 Hypertensive heart and chronic kidney disease without heart failure, with stage 1 through stage 4 chronic kidney disease, or unspecified chronic kidney disease; D72.829 Elevated white blood cell count, unspecified; E13.22 Other specified diabetes mellitus with diabetic chronic kidney disease; I10 Essential (primary) hypertension; A09 Infectious gastroenteritis and colitis, unspecified; E86.0 Dehydration; N17.9 Acute kidney failure, unspecified; N18.9 Chronic kidney disease, unspecified; R00.0 Tachycardia, unspecified; Z79.4 Long term (current) use of insulin
CPT/HCPCS: 36415; 71010; 71045; 74000; 74018; 74177; 80053; 81001; 82150; 83605; 83690; 84145; 84484; 85007; 85025; 86140; 87040; 87081; 87086; 87493; 93005; 96361; 96365; 96366; 96367; 96375; 99284; G0378; J2405; Q9967